=== PATIENT | female | born 1965 | race African-American/Black ===

== ENCOUNTER 2022-03-08 14:16 | Emergency (ER) | payer SELFPAY ==
[2022-03-08 15:21] LABS: #Eosinphils 0.1 thou/uL (0.0-0.7); #Lymphocytes 1.7 thou/uL (1.20-3.40); #Monocytes 0.5 thou/uL (0.11-0.59); #Neutrophils 2.1 thou/uL (1.40-6.50); %Basophils 0.9 % (0.0-1.0); %Eosinophils 1.5 % (0.0-10.0); %Lymphocytes 37.9 % (21.0-51.0); %Monocytes 11.2 % (0.0-10.0); %Neutrophils 48.5 % (42.0-75.0); Hemoglobin 13.9 g/dL (12.0-16.0); Mean Corpuscular HGB CONC 33.4 g/dL (32.0-36.0); Mean Corpuscular Hemoglobin 32.7 pg (27.0-31.0); Mean Corpuscular Volume 97.9 fL (78.0-98.0); Platelet Count 245 thou/uL (130-400); RBC Distribution Width 12.4 % (11.5-14.5); Red Blood Cell (RBC) Count 4.24 mill/uL (4.20-5.40); White Blood Cell (WBC) Count 4.4 thou/uL (4.8-10.8)
[2022-03-08] MEDS ORDERED: Lisinopril 10 MG TAB ONE (15:21)
[2022-03-08] MEDS ORDERED: Amlodipine 5 MG TAB ONE (15:21)
[2022-03-08 15:47] LABS: ALT (SGPT) 10 U/L (8-55); AST (SGOT) 19 U/L (5-34); Albumin 4.3 g/dL (3.5-5.0); Alkaline Phosphatase 207 U/L (40-110); Anion Gap 14 mmol/L (10-20); BUN (Urea Nitrogen) 12 mg/dL (9.8-20.1); Bilirubin, Total 0.7 mg/dL (0.2-1.2); Calc. Creatinine Clearance 0 mL/min (70-130); Calcium 9.5 mg/dL (7.8-10.44); Carbon Dioxide 25 mmol/L (22-29); Chloride 102 mmol/L (98-107); Estimated GFR 74; Globulin 4.2 g/dL (2.4-3.5); Glucose 85 mg/dL (70-105); Lipase 13 U/L (8-78); Potassium 3.6 mmol/L (3.5-5.1); Protein, Total 8.5 g/dL (6.0-8.3); Sodium 137 mmol/L (136-145)
[2022-03-08 16:12] LABS: Bilirubin Negative (Negative); Blood, Urine Negative (Negative); Clarity Clear (Clear); Glucose, Urine (Dipstick) Normal (Negative); Ketone, Urine Negative (Negative); Leukocyte Negative Leu/uL (Negative); Nitrite Negative (Negative); Protein, Urine (Dipstick) Negative (Neg-Trace); Urobilinogen Normal mg/dL (Less than 2); pH, Urine 6.5 (5.0-9.0)
== END 2022-03-08 17:16 | disposition home or self-care (01) ==
LOC: ERS 14:16
DX: I10 Essential (primary) hypertension (principal); F17.210 Nicotine dependence, cigarettes, uncomplicated
CPT/HCPCS: 70450; 71045; 80053; 81003; 83690; 83735; 84484; 85025; 93005

== ENCOUNTER 2022-08-01 16:23 | Emergency (ER) | payer SELFPAY | END 2022-08-01 17:10 | disposition left against medical advice (07) | LOC: ERS 16:23 | DX: Z53.29 Procedure and treatment not carried out because of patient's decision for other reasons (principal) ==

== ENCOUNTER 2022-08-21 13:58 | Outpatient (CLI) | payer OTHER | END 2022-08-21 13:59 | disposition home or self-care (01) | LOC: BICULT 13:58 | PROVIDERS: ATTEND Family Medicine | DX: S80.01XD Contusion of right knee, subsequent encounter (principal); S80.11XD Contusion of right lower leg, subsequent encounter; M12.571 Traumatic arthropathy, right ankle and foot; S76.301D Unspecified injury of muscle, fascia and tendon of the posterior muscle group at thigh level, right thigh, subsequent encounter; R26.9 Unspecified abnormalities of gait and mobility; M79.661 Pain in right lower leg; M25.561 Pain in right knee | CPT/HCPCS: 76999 ==

== ENCOUNTER 2022-09-17 13:48 | Inpatient (IN) | payer OTHER, SELFPAY ==
[~2022-09-17 13:48] MED LIST: Iopamidol-370 76% 500 ML 1 ML ONE
[2022-09-17 14:38] LABS: #Eosinphils 0.1 thou/uL (0.0-0.7); #Lymphocytes 1.6 thou/uL (1.20-3.40); #Monocytes 0.4 thou/uL (0.11-0.59); %Basophils 0.6 % (0.0-1.0); %Lymphocytes 39.7 % (21.0-51.0); %Neutrophils 48.7 % (42.0-75.0); Hemoglobin 13.6 g/dL (12.0-16.0); INR-International Normal Ratio 0.9; Mean Corpuscular HGB CONC 33.6 g/dL (32.0-36.0); Mean Corpuscular Hemoglobin 33.4 pg (27.0-31.0); Mean Corpuscular Volume 99.5 fl (78.0-98.0); Mean Platelet Volume 7.3 fL (7.4-10.4); PTT 28.5 sec (22.9-36.1); Platelet Count 246 10x3/uL (130-400); Prothrombin Time 12.9 sec (12.0-14.7); RBC Distribution Width 12.4 % (11.5-14.5); Red Blood Cell (RBC) Count 4.07 mill/uL (4.20-5.40)
[2022-09-17 14:49] LABS: ALT (SGPT) 7 U/L (8-55); AST (SGOT) 15 U/L (5-34); Albumin 3.9 g/dL (3.5-5.0); Alkaline Phosphatase 208 U/L (40-110); Anion Gap 11 mmol/L (10-20); BUN (Urea Nitrogen) 13 mg/dL (9.8-20.1); Bilirubin, Total 0.5 mg/dL (0.2-1.2); Calc. Creatinine Clearance 0 mL/min (70-130); Calcium 9.5 mg/dL (7.8-10.44); Carbon Dioxide 27 mmol/L (22-29); Chloride 105 mmol/L (98-107); Estimated GFR 68; Globulin 3.8 g/dL (2.4-3.5); Glucose 96 mg/dL (70-105); Potassium 4.3 mmol/L (3.5-5.1); Protein, Total 7.7 g/dL (6.0-8.3); Sodium 139 mmol/L (136-145)
[2022-09-17 15:08] LABS: CKMB 1.1 ng/mL (0-6.6)
[2022-09-17] MEDS ORDERED: Aspirin Chewable 81 MG TAB ONE (19:09)
[2022-09-17] MEDS ORDERED: Nitroglycerin 2% Ointment 1 INCH/1 GM Packet ONE (19:09)
[2022-09-17] MEDS ORDERED: Ondansetron PF 4 MG/2 ML Vial IVP PRN (19:20)
[2022-09-17] MEDS ORDERED: Nitroglycerin 0.4 MG TAB (25 Tab Bottle) SL PRN (19:20)
[2022-09-17] MEDS ORDERED: Losartan 25 MG TAB PO SCH (21:00)
[2022-09-17] MEDS: traMADol HCl 50 MG TAB PO PRN (22:52)
[2022-09-17] MEDS: Amlodipine 10 MG TAB PO SCH (22:52)
[2022-09-18 00:17] VITALS: BMI 37.8
[2022-09-18] MEDS: Acetaminophen 325 MG TAB PO PRN ×2 (04:16→16:57)
[2022-09-18 04:46] LABS: #Eosinphils 0.1 thou/uL (0.0-0.7); #Lymphocytes 2.3 thou/uL (1.20-3.40); #Monocytes 0.5 thou/uL (0.11-0.59); #Neutrophils 1.9 thou/uL (1.40-6.50); %Basophils 0.5 % (0.0-1.0); %Eosinophils 2.3 % (0.0-10.0); %Lymphocytes 47.6 % (21.0-51.0); %Monocytes 10.7 % (0.0-10.0); %Neutrophils 38.8 % (42.0-75.0); Hemoglobin 12.2 g/dL (12.0-16.0); Mean Corpuscular Hemoglobin 33.7 pg (27.0-31.0); Mean Platelet Volume 7.3 fL (7.4-10.4); Platelet Count 220 10x3/uL (130-400); RBC Distribution Width 12.3 % (11.5-14.5); Red Blood Cell (RBC) Count 3.63 mill/uL (4.20-5.40); White Blood Cell (WBC) Count 4.9 10x3/uL (4.8-10.8)
[2022-09-18 04:55] LABS: Hemoglobin A1c 5.2 % (4.0-6.0)
[2022-09-18 05:20] LABS: Anion Gap 11 mmol/L (10-20); BUN (Urea Nitrogen) 17 mg/dL (9.8-20.1); Calc. Creatinine Clearance 121 mL/min (70-130); Calcium 8.8 mg/dL (7.8-10.44); Carbon Dioxide 24 mmol/L (22-29); Cardiac Risk 3.4 (Less than 4.5); Chloride 109 mmol/L (98-107); Cholesterol 201 mg/dl (< 200 Desired); Estimated GFR 78; Glucose 90 mg/dL (70-105); HDL Cholesterol 59 mg/dL (>60 Neg Risk); LDL Cholesterol, Calculated 127 mg/dL; Sodium 140 mmol/L (136-145); Triglycerides 75 mg/dL (Less than 150)
[2022-09-18 07:02] LABS: Amphetamine Not Detected (NotDetected); Barbiturates Screen Not Detected (NotDetected); Benzodiazepine Screen Not Detected (NotDetected); Cocaine Metabolite Screen Not Detected (NotDetected); Methadone Not Detected (NotDetected); Methamphetamine Not Detected (NotDetected); Opiate Screen Not Detected (NotDetected); Oxycodone Screen Not Detected (NotDetected); Phencyclidine (PCP) Not Detected (NotDetected); THC/Cannabinoid Screen Detected (NotDetected); Tricyclic Screen Not Detected (NotDetected)
[2022-09-18] MEDS ORDERED: Regadenoson 0.4 MG/5 ML SYRINGE ONE (08:58)
[2022-09-18] MEDS: Losartan 25 MG TAB PO SCH (09:00)
[2022-09-18] MEDS ORDERED: Mag-Al Plus 1200 MG/1200 MG/120 MG/30 ML UDCUP PO PRN ×2 (13:46→16:31)
[2022-09-18] MEDS ORDERED: Morphine 2 MG/ML VIAL SLOW IVP PRN (16:49)
[2022-09-18 17:49] LABS: Troponin I 0.027 ng/mL (< 0.028)
[2022-09-18] MEDS: Amlodipine 10 MG TAB PO SCH (20:23)
[2022-09-18] MEDS: Atorvastatin Calcium 40 MG TAB PO SCH (20:23)
[2022-09-18] MEDS: traMADol HCl 50 MG TAB PO PRN (20:23)
[2022-09-18] MEDS ORDERED: cloNIDine 0.1 MG TAB PO SCH (22:30)
[2022-09-19 04:50] LABS: #Eosinphils 0.1 thou/uL (0.0-0.7); #Lymphocytes 2.3 thou/uL (1.20-3.40); #Monocytes 0.6 thou/uL (0.11-0.59); #Neutrophils 2.4 thou/uL (1.40-6.50); %Basophils 0.4 % (0.0-1.0); %Eosinophils 1.8 % (0.0-10.0); %Lymphocytes 43.4 % (21.0-51.0); %Monocytes 10.7 % (0.0-10.0); %Neutrophils 43.7 % (42.0-75.0); Hemoglobin 12.9 g/dL (12.0-16.0); Mean Corpuscular HGB CONC 33.9 g/dL (32.0-36.0); Mean Corpuscular Hemoglobin 33.5 pg (27.0-31.0); Mean Corpuscular Volume 98.7 fl (78.0-98.0); Mean Platelet Volume 7.2 fL (7.4-10.4); Platelet Count 213 10x3/uL (130-400); RBC Distribution Width 12.5 % (11.5-14.5); Red Blood Cell (RBC) Count 3.84 mill/uL (4.20-5.40); White Blood Cell (WBC) Count 5.4 10x3/uL (4.8-10.8)
[2022-09-19 05:13] LABS: Anion Gap 9 mmol/L (10-20); BUN (Urea Nitrogen) 10 mg/dL (9.8-20.1); Calc. Creatinine Clearance 110 mL/min (70-130); Calcium 8.7 mg/dL (7.8-10.44); Carbon Dioxide 27 mmol/L (22-29); Chloride 105 mmol/L (98-107); Estimated GFR 69; Glucose 92 mg/dL (70-105); Potassium 3.9 mmol/L (3.5-5.1); Sodium 137 mmol/L (136-145)
[2022-09-19] MEDS: Losartan 25 MG TAB PO SCH (10:39)
[2022-09-19] MEDS: traMADol HCl 50 MG TAB PO PRN (11:52)
[2022-09-19] MEDS: Atorvastatin Calcium 40 MG TAB PO SCH (20:57)
[2022-09-19] MEDS: Amlodipine 10 MG TAB PO SCH (20:57)
[2022-09-19] MEDS: Acetaminophen 325 MG TAB PO PRN (21:00)
[2022-09-20] MEDS: Acetaminophen 325 MG TAB PO PRN (01:02)
[2022-09-20] MEDS: traMADol HCl 50 MG TAB PO PRN (04:25)
[2022-09-20 05:19] LABS: #Basophils 0.1 thou/uL (0.0-0.2); #Eosinphils 0.1 thou/uL (0.0-0.7); #Lymphocytes 2.1 thou/uL (1.20-3.40); #Monocytes 0.6 thou/uL (0.11-0.59); #Neutrophils 2.3 thou/uL (1.40-6.50); %Eosinophils 1.9 % (0.0-10.0); %Lymphocytes 39.7 % (21.0-51.0); %Monocytes 12.2 % (0.0-10.0); %Neutrophils 45.2 % (42.0-75.0); Hemoglobin 12.7 g/dL (12.0-16.0); Mean Corpuscular HGB CONC 33.6 g/dL (32.0-36.0); Mean Corpuscular Hemoglobin 33.6 pg (27.0-31.0); Mean Corpuscular Volume 99.8 fl (78.0-98.0); Mean Platelet Volume 7.1 fL (7.4-10.4); Platelet Count 227 10x3/uL (130-400); RBC Distribution Width 12.3 % (11.5-14.5); White Blood Cell (WBC) Count 5.2 10x3/uL (4.8-10.8)
[2022-09-20 05:47] LABS: Anion Gap 12 mmol/L (10-20); BUN (Urea Nitrogen) 11 mg/dL (9.8-20.1); Calc. Creatinine Clearance 113 mL/min (70-130); Carbon Dioxide 26 mmol/L (22-29); Chloride 104 mmol/L (98-107); Estimated GFR 72; Glucose 84 mg/dL (70-105); Potassium 3.8 mmol/L (3.5-5.1); Sodium 138 mmol/L (136-145)
[2022-09-20] MEDS: Losartan 25 MG TAB PO SCH (08:58)
[2022-09-20] MEDS ORDERED: Aspirin 81 mg Enteric Coated Tablet PO SCH (09:00)
[2022-09-20 11:44] VITALS: BP 157/72; TEMP 98.2
== END 2022-09-20 16:26 | disposition home or self-care (01) | DRG 556 ==
LOC: ERS 13:48 → 2NO 19:08 → OBSVTOIN 09-18 15:58
PROVIDERS: ADMIT Internal Medicine; ATTEND Internal Medicine
DX: M25.561 Pain in right knee (principal); I16.0 Hypertensive urgency; R07.89 Other chest pain; K21.9 Gastro-esophageal reflux disease without esophagitis; Z20.822 Contact with and (suspected) exposure to COVID-19; I10 Essential (primary) hypertension; F17.210 Nicotine dependence, cigarettes, uncomplicated; G89.29 Other chronic pain; M54.2 Cervicalgia; R00.1 Bradycardia, unspecified; M54.9 Dorsalgia, unspecified; Z98.890 Other specified postprocedural states; Z82.49 Family history of ischemic heart disease and other diseases of the circulatory system; Z80.0 Family history of malignant neoplasm of digestive organs; Z91.14 Patient's other noncompliance with medication regimen
CPT/HCPCS: 36415; 36416; 71275; 78452; 80048; 80053; 80061; 80306; 82553; 83036; 83735; 83880; 84484; 85025; 85379; 85610; 85730; 93005; 93010; 93017; 96372; A9500; G0378; J1650; J2785; Q9967; U0003; U0005